=== PATIENT | male | born 1955 | race Caucasian/White ===

== ENCOUNTER 2022-08-02 10:49 | Outpatient (CLI) | payer BC, SELFPAY ==
--- NOTE | 2022-08-02 12:15 | W.ANESCHARGE ---
Anesthesia Charges Start Date/Time Anesthesia Start Date: 08/02/22 Anesthesia Start Time: 11:45 Stop Date/Time Anesthesia Stop Date: 08/02/22 Anesthesia Stop Time: 12:05 Summary Emergency: No
== END 2022-08-02 10:50 | disposition home or self-care (01) ==
LOC: OP CLINIC 10:51
PROVIDERS: PCP Internal Medicine; Visit Provider Internal Medicine
DX: Z12.11 Encounter for screening for malignant neoplasm of colon (principal); K63.5 Polyp of colon; K57.30 Diverticulosis of large intestine without perforation or abscess without bleeding; Z80.0 Family history of malignant neoplasm of digestive organs
CPT/HCPCS: 00811; 45380; 88305; J2704

== ENCOUNTER 2023-03-11 07:33 | Outpatient (CLI) | payer BC, SELFPAY ==
--- NOTE | 2023-03-11 08:00 | CRLHL7_ITS ---
For Patients: As a result of the Century Cures Act, medical imaging exams and procedure reports are released immediately into your electronic medical record. You may view this report before your referring provider. If you have questions, please contact your health care provider. INDICATION: RIGHT SIDED NECK MASS INTO 2 WEEKS COMPARISON: none TECHNIQUE: A CT volumetric acquisition was performed of the neck during intravenous infusion of 139 cc Isovue 370 nonionic intravenous contrast. Please note that all CT scans at this facility use dose modulation, iterative reconstruction, and/or weight-based dosing when appropriate to reduce radiation dose to as low as reasonably achievable. FINDINGS: The CT images demonstrate normal aeration of the mastoid air cells and middle ear cavities. Mild mucosal thickening within the inferior left maxillary sinus. The nasopharynx appears normal. The parotid and submandibular glands are of normal size and have uniform enhancement. There is a subtle ill-defined area of decreased density within the right posterior tongue base measuring 1.5 cm. An enlarged right cervical lymph node is present measuring 3.2 x 2.1 x 2.9 cm corresponding to the area of palpable concern, level II. Mild obscuration of the right piriform sinus noted. Coarse calcification adjacent to the right vallecula. Thyroid normal. Lung apices clear. Degenerative disc disease with disc space narrowing at C5-6. Discogenic spurring C6-7. IMPRESSION: Enlarged right cervical level 2 lymph node measuring 3.2 cm. A suspicious right posterior tongue base lesion is suspected as well. ENT referral recommended. Please note that all CT scans at this facility use dose modulation, iterative reconstruction, and/or weight-based dosing when appropriate to reduce radiation dose to as low as reasonably achievable. Dictated by Harley Sebastian MD @ 03/11/2023 11:44:28 AM (Electronically Signed)
[2023-03-11 08:13] LABS: Creatinine* 0.9 mg/dL (0.5-1.5); Estimated Glomerular Filt Rate 95 ml/min
== END 2023-03-11 07:34 | disposition home or self-care (01) ==
PROVIDERS: PCP Internal Medicine; Visit Provider Internal Medicine
DX: R22.1 Localized swelling, mass and lump, neck (principal)
CPT/HCPCS: 36415; 70491; 82565; 84443; Q9967

== ENCOUNTER 2023-04-29 13:31 | Outpatient (CLI) | payer BC, SELFPAY ==
--- NOTE | 2023-04-29 | CRLHL7_ITS ---
For Patients: As a result of the Century Cures Act, medical imaging exams and procedure reports are released immediately into your electronic medical record. You may view this report before your referring provider. If you have questions, please contact your health care provider. INDICATION: PICC line placement. TECHNIQUE: Chest radiographs, 1 view. COMPARISON: None. FINDINGS: Lines/Tubes/Devices: Left-sided peripherally inserted central venous catheter with tip terminating in the SVC, satisfactory position. Mediastinum: Normal cardiac silhouette. Lungs: No focal consolidation. Pleura: No pleural effusions or pneumothorax. Bones: No acute osseous abnormalities. Soft tissues: Unremarkable. IMPRESSION: Satisfactory position of a left-sided PICC line. No pneumothorax. Dictated by Mick Robert MD @ 04/29/2023 3:30:45 PM (Electronically Signed)
--- NOTE | 2023-04-29 14:00 | CRLHL7_ITS ---
For Patients: As a result of the Century Cures Act, medical imaging exams and procedure reports are released immediately into your electronic medical record. You may view this report before your referring provider. If you have questions, please contact your health care provider. Indication: PICC placement Technique: Grayscale images of the left basilic vein and left jugular vein. IMPRESSION: Sonographic guidance for left arm PICC line placement. Dictated by Harley Sebastian MD @ 04/30/2023 8:53:00 AM (Electronically Signed)
== END 2023-04-29 13:32 | disposition home or self-care (01) ==
LOC: US 13:32
PROVIDERS: PCP Internal Medicine; Visit Provider Clinical Nurse Specialist
DX: Z45.2 Encounter for adjustment and management of vascular access device (principal)
CPT/HCPCS: 36573

== ENCOUNTER 2023-05-07 09:17 | Outpatient (CLI) | payer BC, SELFPAY ==
--- NOTE | 2023-05-07 09:15 | CRLHL7_ITS ---
For Patients: As a result of the Century Cures Act, medical imaging exams and procedure reports are released immediately into your electronic medical record. You may view this report before your referring provider. If you have questions, please contact your health care provider. INDICATION: Malignant neoplasm of tongue base TECHNIQUE: Modified barium swallow. Fluoroscopic time 62 seconds. COMPARISON: None FINDINGS/IMPRESSION: The epiglottis retroverted normally but it appears somewhat delayed in anteversion. However, no aspiration or penetration. No obstruction. Normal upper esophagus. Dictated by Harley Sebastian MD @ 05/07/2023 9:52:53 AM (Electronically Signed)
== END 2023-05-07 09:18 | disposition home or self-care (01) ==
LOC: RAD 09:18
PROVIDERS: PCP Internal Medicine; Visit Provider Physician Assistant
DX: C01 Malignant neoplasm of base of tongue (principal)
CPT/HCPCS: 74230; 92611

== ENCOUNTER 2023-08-27 15:00 | Outpatient (RCR) | payer BC, SELFPAY ==
[2023-04-16 09:05] LABS: Creatinine* 0.8 mg/dL (0.5-1.5); Est. Creatinine Clearance* 85.63; Estimated Glomerular Filt Rate 98 ml/min
--- NOTE | 2023-04-18 11:56 | URNOTE ---
Request received for authorization for Cisplatin ([id number]). Prior authorization is not required per [facility] Ref#[id number] from 04/22/23 to 04/22/24.
[2023-04-21 12:10] LABS: Basophils Absolute Auto 0.04 K/uL (0.00-0.30); Basophils Percent Auto 0.6 % (0.0-3.0); Eosinophils Absolute Auto 0.11 K/uL (0.00-0.50); Eosinophils Percent Auto 1.5 % (0.0-7.0); Hemoglobin* 16.1 gm/dL (13.5-17.5); Immature Granulocytes Abs Auto 0.01 K/uL (0.00-0.30); Immature Granulocytes Pct Auto 0.1 %; Lymphocytes Absolute Auto 2.61 K/uL (0.90-2.90); Lymphocytes Percent Auto 36.1 % (20-44); Mean Corpuscular HGB Conc 35 gm/dL (32-36); Mean Corpuscular Hemoglobin 32 pg (26-34); Mean Corpuscular Volume 92 fL (80-100); Monocytes Percent Auto 6.8 % (0.0-11.0); Neutrophils Absolute Auto 3.96 K/uL (1.7-7.0); Neutrophils Percent Auto 54.9 % (42.0-72.0); Platelet Count* 230 K/uL (140-440); Red Blood Count 4.99 m/uL (4.30-5.90); White Blood Count* 7.22 K/uL (4.50-11.00)
[2023-04-21 12:19] LABS: Slide Review Reflex No
[2023-04-21 12:35] LABS: Albumin* 4.4 g/dL (3.3-5.0); Chloride* 106 mmol/L (96-114); Sodium* 141 mmol/L (135-149)
[2023-04-21 12:36] LABS: Potassium* 4.4 mmol/L (3.6-5.1)
[2023-04-21 12:37] LABS: Creatinine* 0.9 mg/dL (0.5-1.5); Est. Creatinine Clearance* 80.83; Estimated Glomerular Filt Rate 95 ml/min
[2023-04-21 12:38] LABS: Alkaline Phosphatase* 57 U/L (40-150); Anion Gap 7 mEq/L (7-15); Aspartate Amino Transferase* 35 U/L (12-35); Bilirubin Total* 0.7 mg/dL (0.1-1.5); Blood Urea Nitrogen* 12 mg/dL (7-30); Carbon Dioxide* 28 mmol/L (20-32); Total Protein* 7.7 g/dL (6.0-8.3)
[2023-04-21 12:39] LABS: Alanine Aminotransferase* 36 U/L (4-50); Calcium* 9.8 mg/dL (8.4-10.6); Glucose* 135 mg/dL (60-115)
[2023-04-23 10:56] VITALS: BP 163/79; PULSE 54; RESP 16; TEMP 36.4; O2SAT 98
[2023-04-23] MEDS: MAGNESIUM SULFATE 2 GM, POTASSIUM CHLORIDE 10 MEQ in 0.9 % SODIUM CHLORIDE 1000 ml 1,00... IV (11:21)
[2023-04-23] MEDS: PALONOSETRON 0.25 MG/5 ML inj IV (12:30)
[2023-04-23] MEDS: dexAMETHasone 10 MG in 0.9 % SODIUM CHLORIDE 100 ml 100 ML 404 MG IVPB (12:30)
[2023-04-23] MEDS: FOSAPREPITANT 150 MG inj 150 MG in 0.9 % SODIUM CHLORIDE 250 ml 250 ML 510 MG IVPB (12:51)
[2023-04-23] MEDS: CISPLATIN IV (13:25)
[2023-04-23] MEDS: TUBING SECONDARY IV (13:25)
[2023-04-23] MEDS: SODIUM CHLORIDE 0.9% IV (13:25)
--- NOTE | 2023-04-24 11:09 | ONC.NURNOTE ---
Post chemo follow up call: Reports no nausea has taken 2 X 5mg compazine this am 30 min prior to breakfost- will continue with this schedule every 4-6 hours today drinking water- 1.5-2 qts so far today reports SAWYER since he woke up this am- this is a possible side effect of the 5HT3 antiemetics- suggested tylenol to treat also suggested taking one ondansetron at a time instead of 2 until SAWYER resolves mid night awakening- otherwise slept well last night Cole would like to have a PICC line placed instead of a port he would like to check on availability next Sunday 04/29 prior to 3:30 XRT appt informed of Central Office Technician to check in at next infusion appt
--- NOTE | 2023-04-25 12:06 | URNOTE ---
REceived request for prior auth for Emend ([id number]) and Aloxi ([id number]). Per [employer], prior auth is not required. Ref #[id number]
[2023-04-29 13:15] VITALS: BP 140/80; PULSE 70; RESP 14; TEMP 36.1; O2SAT 97
[2023-04-29 15:12] LABS: Basophils Absolute Auto 0.03 K/uL (0.00-0.30); Basophils Percent Auto 0.5 % (0.0-3.0); Eosinophils Absolute Auto 0.11 K/uL (0.00-0.50); Eosinophils Percent Auto 1.8 % (0.0-7.0); Hematocrit 41.9 % (37.0-53.0); Hemoglobin* 14.8 gm/dL (13.5-17.5); Lymphocytes Absolute Auto 1.42 K/uL (0.90-2.90); Lymphocytes Percent Auto 22.6 % (20-44); Mean Corpuscular HGB Conc 35 gm/dL (32-36); Mean Corpuscular Hemoglobin 32 pg (26-34); Mean Corpuscular Volume 90 fL (80-100); Monocytes Percent Auto 9.6 % (0.0-11.0); Neutrophils Absolute Auto 4.12 K/uL (1.7-7.0); Neutrophils Percent Auto 65.5 % (42.0-72.0); Platelet Count* 240 K/uL (140-440); RDW Coefficient of Variation % 11.7 % (11.5-15.5); Red Blood Count 4.65 m/uL (4.30-5.90); White Blood Count* 6.28 K/uL (4.50-11.00)
[2023-04-29 15:17] LABS: Slide Review Reflex No
[2023-04-29 15:30] LABS: Albumin* 3.9 g/dL (3.3-5.0); Chloride* 100 mmol/L (96-114)
[2023-04-29 15:31] LABS: Sodium* 133 mmol/L (135-149)
[2023-04-29 15:33] LABS: Alanine Aminotransferase* 35 U/L (4-50); Alkaline Phosphatase* 53 U/L (40-150); Anion Gap 7 mEq/L (7-15); Aspartate Amino Transferase* 29 U/L (12-35); Bilirubin Total* 0.6 mg/dL (0.1-1.5); Blood Urea Nitrogen* 13 mg/dL (7-30); Carbon Dioxide* 26 mmol/L (20-32); Creatinine* 0.9 mg/dL (0.5-1.5); Est. Creatinine Clearance* 80.83; Estimated Glomerular Filt Rate 95 ml/min; Glucose* 119 mg/dL (60-115); Total Protein* 6.9 g/dL (6.0-8.3)
[2023-04-29 15:34] LABS: Calcium* 9.3 mg/dL (8.4-10.6)
[2023-04-30 10:59] VITALS: BP 136/91; PULSE 60; RESP 16; TEMP 36.7; O2SAT 99
[2023-04-30] MEDS: MAGNESIUM SULFATE 2 GM, POTASSIUM CHLORIDE 10 MEQ in 0.9 % SODIUM CHLORIDE 1000 ml 1,00... IV (11:49)
[2023-04-30] MEDS: dexAMETHasone 10 MG in 0.9 % SODIUM CHLORIDE 100 ml 100 ML 404 MG IVPB (12:57)
[2023-04-30] MEDS: PALONOSETRON 0.25 MG/5 ML inj IV (12:57)
[2023-04-30] MEDS: FOSAPREPITANT 150 MG inj 150 MG in 0.9 % SODIUM CHLORIDE 250 ml 250 ML 800 MG IVPB (13:16)
[2023-04-30] MEDS: SODIUM CHLORIDE 0.9% IV (13:46)
[2023-04-30] MEDS: CISPLATIN IV (13:46)
[2023-04-30] MEDS: TUBING SECONDARY IV (13:46)
[2023-05-06 14:35] LABS: Basophils Absolute Auto 0.02 K/uL (0.00-0.30); Basophils Percent Auto 0.3 % (0.0-3.0); Eosinophils Absolute Auto 0.07 K/uL (0.00-0.50); Eosinophils Percent Auto 1.2 % (0.0-7.0); Hematocrit 41.6 % (37.0-53.0); Hemoglobin* 14.8 gm/dL (13.5-17.5); Immature Granulocytes Abs Auto 0.01 K/uL (0.00-0.30); Immature Granulocytes Pct Auto 0.2 %; Lymphocytes Percent Auto 15.5 % (20-44); Mean Corpuscular HGB Conc 36 gm/dL (32-36); Mean Corpuscular Hemoglobin 32 pg (26-34); Mean Corpuscular Volume 90 fL (80-100); Monocytes Percent Auto 7.4 % (0.0-11.0); Neutrophils Percent Auto 75.4 % (42.0-72.0); Platelet Count* 203 K/uL (140-440); RDW Coefficient of Variation % 11.7 % (11.5-15.5); Red Blood Count 4.62 m/uL (4.30-5.90); White Blood Count* 5.94 K/uL (4.50-11.00)
[2023-05-06 14:53] LABS: Albumin* 3.9 g/dL (3.3-5.0); Chloride* 102 mmol/L (96-114)
[2023-05-06 14:54] LABS: Potassium* 4.1 mmol/L (3.6-5.1); Sodium* 134 mmol/L (135-149)
[2023-05-06 14:56] LABS: Anion Gap 8 mEq/L (7-15); Aspartate Amino Transferase* 27 U/L (12-35); Bilirubin Total* 0.7 mg/dL (0.1-1.5); Blood Urea Nitrogen* 14 mg/dL (7-30); Carbon Dioxide* 24 mmol/L (20-32); Creatinine* 0.7 mg/dL (0.5-1.5); Est. Creatinine Clearance* 80.83; Estimated Glomerular Filt Rate 102 ml/min; Slide Review Reflex No; Total Protein* 7.1 g/dL (6.0-8.3)
[2023-05-06 14:57] LABS: Alanine Aminotransferase* 33 U/L (4-50); Alkaline Phosphatase* 61 U/L (40-150); Calcium* 9.1 mg/dL (8.4-10.6); Glucose* 193 mg/dL (60-115); Magnesium* 1.9 mg/dL (1.5-2.6)
[2023-05-07 10:41] VITALS: BP 130/86; PULSE 66; RESP 16; TEMP 36.7; O2SAT 94
[2023-05-07] MEDS: MAGNESIUM SULFATE 2 GM, POTASSIUM CHLORIDE 10 MEQ in 0.9 % SODIUM CHLORIDE 1000 ml 1,00... IV (11:36)
[2023-05-07] MEDS: PALONOSETRON 0.25 MG/5 ML inj IV (12:53)
[2023-05-07] MEDS: dexAMETHasone 10 MG in 0.9 % SODIUM CHLORIDE 100 ml 100 ML 404 MG IVPB (12:54)
[2023-05-07] MEDS: FOSAPREPITANT 150 MG inj 150 MG in 0.9 % SODIUM CHLORIDE 250 ml 250 ML 510 MG IVPB (13:13)
[2023-05-07] MEDS: TUBING SECONDARY IV (13:49)
[2023-05-07] MEDS: SODIUM CHLORIDE 0.9% IV (13:49)
[2023-05-07] MEDS: CISPLATIN IV (13:49)
[2023-05-13 15:30] LABS: Basophils Absolute Auto 0.02 K/uL (0.00-0.30); Basophils Percent Auto 0.4 % (0.0-3.0); Eosinophils Absolute Auto 0.06 K/uL (0.00-0.50); Eosinophils Percent Auto 1.3 % (0.0-7.0); Hematocrit 39.7 % (37.0-53.0); Hemoglobin* 14.3 gm/dL (13.5-17.5); Mean Corpuscular HGB Conc 36 gm/dL (32-36); Mean Corpuscular Hemoglobin 32 pg (26-34); Mean Corpuscular Volume 89 fL (80-100); Monocytes Percent Auto 9.8 % (0.0-11.0); Neutrophils Absolute Auto 3.18 K/uL (1.7-7.0); Neutrophils Percent Auto 69.5 % (42.0-72.0); Platelet Count* 184 K/uL (140-440); RDW Coefficient of Variation % 11.5 % (11.5-15.5); Red Blood Count 4.47 m/uL (4.30-5.90); White Blood Count* 4.58 K/uL (4.50-11.00)
[2023-05-13 15:40] LABS: Slide Review Reflex No
[2023-05-13 15:46] LABS: Albumin* 4.1 g/dL (3.3-5.0); Chloride* 101 mmol/L (96-114); Sodium* 133 mmol/L (135-149)
[2023-05-13 15:47] LABS: Potassium* 3.9 mmol/L (3.6-5.1)
[2023-05-13 15:49] LABS: Alanine Aminotransferase* 29 U/L (4-50); Alkaline Phosphatase* 55 U/L (40-150); Anion Gap 10 mEq/L (7-15); Aspartate Amino Transferase* 27 U/L (12-35); Bilirubin Total* 0.5 mg/dL (0.1-1.5); Blood Urea Nitrogen* 13 mg/dL (7-30); Carbon Dioxide* 22 mmol/L (20-32); Creatinine* 0.8 mg/dL (0.5-1.5); Est. Creatinine Clearance* 80.83; Estimated Glomerular Filt Rate 98 ml/min; Glucose* 162 mg/dL (60-115); Total Protein* 7.1 g/dL (6.0-8.3)
[2023-05-13 15:50] LABS: Calcium* 9.1 mg/dL (8.4-10.6); Magnesium* 1.8 mg/dL (1.5-2.6)
[2023-05-14] MEDS: MAGNESIUM SULFATE 2 GM, POTASSIUM CHLORIDE 10 MEQ in 0.9 % SODIUM CHLORIDE 1000 ml 1,00... IV (09:14)
[2023-05-14] MEDS: PALONOSETRON 0.25 MG/5 ML inj IV (10:22)
[2023-05-14] MEDS: dexAMETHasone 10 MG in 0.9 % SODIUM CHLORIDE 100 ml 100 ML 404 MG IVPB (10:22)
[2023-05-14] MEDS: FOSAPREPITANT 150 MG inj 150 MG in 0.9 % SODIUM CHLORIDE 250 ml 250 ML 510 MG IVPB (10:44)
[2023-05-14] MEDS: SODIUM CHLORIDE 0.9% IV (11:24)
[2023-05-14] MEDS: CISPLATIN IV (11:24)
[2023-05-14] MEDS: TUBING SECONDARY IV (11:24)
[2023-05-14] MEDS: SODIUM CHLORIDE 0.9 % (FLUSH) 10 ML SYRINGE IVF (13:47)
[2023-05-20 15:03] LABS: Basophils Percent Auto 0.2 % (0.0-3.0); Eosinophils Percent Auto 1.2 % (0.0-7.0); Hematocrit 36.9 % (37.0-53.0); Hemoglobin* 13.1 gm/dL (13.5-17.5); Lymphocytes Percent Auto 13.2 % (20-44); Mean Corpuscular HGB Conc 36 gm/dL (32-36); Mean Corpuscular Hemoglobin 32 pg (26-34); Mean Corpuscular Volume 91 fL (80-100); Monocytes Percent Auto 10.9 % (0.0-11.0); Neutrophils Percent Auto 74.5 % (42.0-72.0); Platelet Count* 133 K/uL (140-440); RDW Coefficient of Variation % 11.7 % (11.5-15.5); Red Blood Count 4.06 m/uL (4.30-5.90); White Blood Count* 4.02 K/uL (4.50-11.00)
[2023-05-20 15:05] LABS: Slide Review Reflex No
[2023-05-20 15:29] LABS: Albumin* 4.2 g/dL (3.3-5.0); Chloride* 102 mmol/L (96-114)
[2023-05-20 15:30] LABS: Potassium* 3.9 mmol/L (3.6-5.1); Sodium* 134 mmol/L (135-149)
[2023-05-20 15:32] LABS: Alkaline Phosphatase* 57 U/L (40-150); Anion Gap 10 mEq/L (7-15); Aspartate Amino Transferase* 24 U/L (12-35); Bilirubin Total* 0.6 mg/dL (0.1-1.5); Carbon Dioxide* 22 mmol/L (20-32); Creatinine* 0.7 mg/dL (0.5-1.5); Est. Creatinine Clearance* 80.83; Estimated Glomerular Filt Rate 102 ml/min
[2023-05-20 15:33] LABS: Alanine Aminotransferase* 26 U/L (4-50); Blood Urea Nitrogen* 15 mg/dL (7-30); Calcium* 9.1 mg/dL (8.4-10.6); Glucose* 170 mg/dL (60-115); Magnesium* 1.9 mg/dL (1.5-2.6)
[2023-05-21 10:54] VITALS: BP 110/77; PULSE 65; RESP 16; TEMP 36.9; O2SAT 96
[2023-05-21] MEDS: SODIUM CHLORIDE 0.9 % (FLUSH) 10 ML SYRINGE IVF (11:33)
[2023-05-21] MEDS: MAGNESIUM SULFATE 2 GM, POTASSIUM CHLORIDE 10 MEQ in 0.9 % SODIUM CHLORIDE 1000 ml 1,00... IV (11:33)
[2023-05-21] MEDS: dexAMETHasone 10 MG in 0.9 % SODIUM CHLORIDE 100 ml 100 ML 404 MG IVPB (12:46)
[2023-05-21] MEDS: PALONOSETRON 0.25 MG/5 ML inj IV (12:46)
[2023-05-21] MEDS: FOSAPREPITANT 150 MG inj 150 MG in 0.9 % SODIUM CHLORIDE 250 ml 250 ML 510 MG IVPB (13:02)
[2023-05-21] MEDS: CISPLATIN IV (13:35)
[2023-05-21] MEDS: TUBING SECONDARY IV (13:35)
[2023-05-21] MEDS: SODIUM CHLORIDE 0.9% IV (13:35)
[2023-05-23] MEDS: 0.9 % SODIUM CHLORIDE 1000 ml 1,000 ML IV (11:15)
[2023-05-23] MEDS: SODIUM CHLORIDE 0.9 % (FLUSH) 10 ML SYRINGE IVF (13:30)
[2023-05-27] MEDS: SODIUM CHLORIDE 0.9 % (FLUSH) 10 ML SYRINGE IVF (15:08)
[2023-05-27 15:09] LABS: Basophils Percent Auto 0.3 % (0.0-3.0); Eosinophils Percent Auto 0.9 % (0.0-7.0); Hematocrit 33.4 % (37.0-53.0); Hemoglobin* 11.9 gm/dL (13.5-17.5); Immature Granulocytes Pct Auto 0.9 %; Lymphocytes Percent Auto 12.9 % (20-44); Mean Corpuscular HGB Conc 36 gm/dL (32-36); Mean Corpuscular Hemoglobin 32 pg (26-34); Mean Corpuscular Volume 90 fL (80-100); Monocytes Percent Auto 10.7 % (0.0-11.0); Neutrophils Percent Auto 74.3 % (42.0-72.0); Platelet Count* 119 K/uL (140-440); RDW Coefficient of Variation % 12.3 % (11.5-15.5); White Blood Count* 3.18 K/uL (4.50-11.00)
[2023-05-27 15:12] VITALS: TEMP 36.1
[2023-05-27 15:15] LABS: Slide Review Reflex No
[2023-05-27 15:24] LABS: Albumin* 4.1 g/dL (3.3-5.0)
[2023-05-27 15:25] LABS: Chloride* 102 mmol/L (96-114); Potassium* 3.9 mmol/L (3.6-5.1); Sodium* 136 mmol/L (135-149)
[2023-05-27 15:27] LABS: Anion Gap 10 mEq/L (7-15); Aspartate Amino Transferase* 26 U/L (12-35); Bilirubin Total* 0.5 mg/dL (0.1-1.5); Blood Urea Nitrogen* 21 mg/dL (7-30); Carbon Dioxide* 24 mmol/L (20-32); Creatinine* 0.9 mg/dL (0.5-1.5); Est. Creatinine Clearance* 80.83; Estimated Glomerular Filt Rate 95 ml/min
[2023-05-27 15:28] LABS: Alanine Aminotransferase* 24 U/L (4-50); Alkaline Phosphatase* 61 U/L (40-150); Calcium* 8.8 mg/dL (8.4-10.6); Glucose* 143 mg/dL (60-115); Magnesium* 1.7 mg/dL (1.5-2.6)
[2023-05-28 10:42] VITALS: BP 122/73; PULSE 70; RESP 16; TEMP 35.9; O2SAT 100
[2023-05-28] MEDS: MAGNESIUM SULFATE 2 GM, POTASSIUM CHLORIDE 10 MEQ in 0.9 % SODIUM CHLORIDE 1000 ml 1,00... IV (11:33)
[2023-05-28] MEDS: dexAMETHasone 10 MG in 0.9 % SODIUM CHLORIDE 100 ml 100 ML 404 MG IVPB (12:52)
[2023-05-28] MEDS: PALONOSETRON 0.25 MG/5 ML inj IV (12:52)
[2023-05-28] MEDS: FOSAPREPITANT 150 MG inj 150 MG in 0.9 % SODIUM CHLORIDE 250 ml 250 ML 510 MG IVPB (13:19)
[2023-05-28] MEDS: TUBING SECONDARY IV (13:52)
[2023-05-28] MEDS: SODIUM CHLORIDE 0.9% IV (13:52)
[2023-05-28] MEDS: CISPLATIN IV (13:52)
[2023-05-28] MEDS: SODIUM CHLORIDE 0.9 % (FLUSH) 10 ML SYRINGE IVF (15:58)
[2023-05-30 14:09] VITALS: BP 128/77; PULSE 73; RESP 16; TEMP 36.6; O2SAT 98
[2023-05-30] MEDS: SODIUM CHLORIDE 0.9 % (FLUSH) 10 ML SYRINGE IVF (14:17)
[2023-05-30] MEDS: 0.9 % SODIUM CHLORIDE 1000 ml 1,000 ML IV (14:17)
[2023-05-30 14:22] VITALS: BP 116/74; BP 128/78; PULSE 85; TEMP 36.8
[2023-06-02 14:00] VITALS: BP 108/74; PULSE 72; RESP 14; TEMP 36.1; O2SAT 100
[2023-06-03 15:01] LABS: Eosinophils Percent Auto 1.6 % (0.0-7.0); Hematocrit 27.5 % (37.0-53.0); Lymphocytes Percent Auto 14.1 % (20-44); Mean Corpuscular HGB Conc 36 gm/dL (32-36); Mean Corpuscular Hemoglobin 33 pg (26-34); Mean Corpuscular Volume 90 fL (80-100); Monocytes Percent Auto 16.4 % (0.0-11.0); Neutrophils Percent Auto 67.9 % (42.0-72.0); Platelet Count* 127 K/uL (140-440); Red Blood Count 3.05 m/uL (4.30-5.90)
[2023-06-03 15:04] LABS: Slide Review Reflex No; White Blood Count* 1.28 K/uL (4.50-11.00)
[2023-06-03 15:16] LABS: Albumin* 3.7 g/dL (3.3-5.0); Chloride* 102 mmol/L (96-114); Potassium* 3.6 mmol/L (3.6-5.1); Sodium* 134 mmol/L (135-149)
[2023-06-03 15:18] LABS: Anion Gap 7 mEq/L (7-15); Aspartate Amino Transferase* 35 U/L (12-35); Bilirubin Total* 0.6 mg/dL (0.1-1.5); Carbon Dioxide* 25 mmol/L (20-32); Creatinine* 0.8 mg/dL (0.5-1.5); Est. Creatinine Clearance* 80.83; Estimated Glomerular Filt Rate 98 ml/min
[2023-06-03 15:19] LABS: Alanine Aminotransferase* 18 U/L (4-50); Alkaline Phosphatase* 54 U/L (40-150); Blood Urea Nitrogen* 19 mg/dL (7-30); Calcium* 8.3 mg/dL (8.4-10.6); Glucose* 142 mg/dL (60-115); Magnesium* 1.5 mg/dL (1.5-2.6); Total Protein* 6.6 g/dL (6.0-8.3)
[2023-06-04] MEDS: 0.9 % SODIUM CHLORIDE 1000 ml 1,000 ML IV (11:55)
[2023-06-13 14:00] VITALS: BP 128/83; BP 97/69; PULSE 103; RESP 17; TEMP 36.1; O2SAT 98
[2023-06-16 14:06] VITALS: BP 133/81; PULSE 66; RESP 17; TEMP 36.6; O2SAT 97
[2023-06-16] MEDS: 0.9 % SODIUM CHLORIDE 1000 ml 1,000 ML IV (14:40)
[2023-06-16] MEDS: SODIUM CHLORIDE 0.9 % (FLUSH) 10 ML SYRINGE IVF (15:04)
[2023-06-18 13:54] VITALS: BP 151/87; PULSE 60; RESP 17; TEMP 36.5; O2SAT 98
[2023-06-18] MEDS: 0.9 % SODIUM CHLORIDE 1000 ml 1,000 ML IV (14:18)
[2023-06-20 13:51] VITALS: BP 148/86; PULSE 70; RESP 18; TEMP 35.7; O2SAT 99
[2023-06-20] MEDS: 0.9 % SODIUM CHLORIDE 1000 ml 1,000 ML IV (14:00)
[2023-06-23 10:59] VITALS: BP 147/85; PULSE 65; RESP 18; TEMP 36.6; O2SAT 98
[2023-06-23] MEDS: 0.9 % SODIUM CHLORIDE 1000 ml 1,000 ML IV (11:30)
[2023-06-23] MEDS: SODIUM CHLORIDE 0.9 % (FLUSH) 10 ML SYRINGE IVF (12:22)
[2023-06-27 14:09] VITALS: BP 138/82; PULSE 62; RESP 16; TEMP 35.8; O2SAT 98
[2023-06-27] MEDS: SODIUM CHLORIDE 0.9 % (FLUSH) 10 ML SYRINGE IVF (14:15)
[2023-06-27] MEDS: 0.9 % SODIUM CHLORIDE 1000 ml 1,000 ML IV (14:20)
[2023-06-27 14:36] LABS: Hematocrit 34.4 % (37.0-53.0); Hemoglobin* 11.6 gm/dL (13.5-17.5); Lymphocytes Percent Auto 9.8 % (20-44); Mean Corpuscular HGB Conc 34 gm/dL (32-36); Mean Corpuscular Hemoglobin 33 pg (26-34); Mean Corpuscular Volume 99 fL (80-100); Monocytes Percent Auto 12.8 % (0.0-11.0); Neutrophils Percent Auto 76.1 % (42.0-72.0); Platelet Count* 233 K/uL (140-440); RDW Coefficient of Variation % 18.4 % (11.5-15.5); Red Blood Count 3.47 m/uL (4.30-5.90); White Blood Count* 4.69 K/uL (4.50-11.00)
[2023-06-27 14:37] LABS: Basophils Absolute Auto 0.01 K/uL (0.00-0.30); Basophils Percent Auto 0.2 % (0.0-3.0); Eosinophils Absolute Auto 0.04 K/uL (0.00-0.50); Eosinophils Percent Auto 0.9 % (0.0-7.0); Immature Granulocytes Abs Auto 0.01 K/uL (0.00-0.30); Immature Granulocytes Pct Auto 0.2 %
[2023-06-27 14:39] LABS: Sodium* 138 mmol/L (135-149)
[2023-06-27 14:40] LABS: Potassium* 3.5 mmol/L (3.6-5.1)
[2023-06-27 14:45] LABS: Slide Review Reflex No
[2023-06-27 14:59] LABS: Albumin* 3.8 g/dL (3.3-5.0)
[2023-06-27 15:00] LABS: Chloride* 104 mmol/L (96-114)
[2023-06-27 15:02] LABS: Anion Gap 11 mEq/L (7-15); Aspartate Amino Transferase* 26 U/L (12-35); Bilirubin Total* 0.7 mg/dL (0.1-1.5); Carbon Dioxide* 23 mmol/L (20-32); Creatinine* 0.7 mg/dL (0.5-1.5); Est. Creatinine Clearance* 80.83; Estimated Glomerular Filt Rate 102 ml/min; Total Protein* 6.8 g/dL (6.0-8.3)
[2023-06-27 15:03] LABS: Alanine Aminotransferase* 19 U/L (4-50); Alkaline Phosphatase* 58 U/L (40-150); Blood Urea Nitrogen* 12 mg/dL (7-30); Calcium* 9.3 mg/dL (8.4-10.6); Glucose* 127 mg/dL (60-115)
== END 2023-10-13 23:59 | disposition home or self-care (01) ==
LOC: CCIC 15:00
PROVIDERS: Clinical Nurse Specialist; Internal Medicine; PCP Internal Medicine; Referring Provider Internal Medicine; Visit Provider Internal Medicine Hematology & Oncology
DX: C01 Malignant neoplasm of base of tongue (principal); R68.2 Dry mouth, unspecified; R22.1 Localized swelling, mass and lump, neck
CPT/HCPCS: 36415; 36569; 36589; 36592; 80053; 82565; 83735; 85025; 96360; 96366; 96376; 96413; 99202; 99205; 99211; 99212; 99213; 99214; 99215; G0463; A4221; J1100; J1453; J2469; J3475; J3480; J7030; J7050; J7120; J9060

== ENCOUNTER 2023-12-05 15:30 | Outpatient (RCR) | payer BC, SELFPAY ==
[2023-06-02] MEDS: 0.9 % SODIUM CHLORIDE 1000 ml 1,000 ML IV (14:00)
[2023-06-02] MEDS: SODIUM CHLORIDE 0.9 % (FLUSH) 10 ML SYRINGE IVF (17:02)
[2023-06-06 14:00] VITALS: BP 108/74; PULSE 72; RESP 18; TEMP 36.9; O2SAT 100
[2023-06-06 14:05] VITALS: BP 118/86; PULSE 86
[2023-06-06] MEDS: SODIUM CHLORIDE 0.9 % (FLUSH) 10 ML SYRINGE IVF (15:32)
[2023-06-09 14:08] VITALS: BP 143/84; PULSE 84; RESP 17; TEMP 36.8; O2SAT 98
[2023-06-09] MEDS: 0.9 % SODIUM CHLORIDE 1000 ml 1,000 ML IV (14:22)
[2023-06-09] MEDS: SODIUM CHLORIDE 0.9 % (FLUSH) 10 ML SYRINGE IVF (14:22)
[2023-06-11] MEDS: 0.9 % SODIUM CHLORIDE 1000 ml 1,000 ML IV (14:00)
[2023-06-11 14:04] VITALS: BP 132/83; PULSE 83; RESP 17; TEMP 36.8; O2SAT 98
[2023-06-11] MEDS: SODIUM CHLORIDE 0.9 % (FLUSH) 10 ML SYRINGE IVF (14:40)
[2023-06-13] MEDS: 0.9 % SODIUM CHLORIDE 1000 ml 1,000 ML IV (14:45)
[2023-06-13] MEDS: SODIUM CHLORIDE 0.9 % (FLUSH) 10 ML SYRINGE IVF (16:42)
== END 2023-12-05 17:02 | disposition home or self-care (01) ==
PROVIDERS: PCP Internal Medicine; Referring Provider Internal Medicine; Visit Provider Physician Assistant
DX: C01 Malignant neoplasm of base of tongue (principal); Z51.89 Encounter for other specified aftercare
CPT/HCPCS: 96360; 97110; 97140; 97161; 97165; 97530; 97535; 99211; A4221; J7030; X5282

== ENCOUNTER 2023-12-07 12:07 | Emergency (ER) | payer BC, SELFPAY ==
[2023-12-07 12:13] VITALS: BP 162/82; PULSE 60; RESP 18; TEMP 36.6; O2SAT 100; BMI 28.8
--- NOTE | 2023-12-07 12:16 | ED.LOWEXIN ---
HPI - Extremity Injury (Lower) General Time Seen by Provider: 12:16 Date Seen: 12/07/23 Chief Complaint: Extremity Pain/Injury, Lower Stated Complaint: Can't bear weight on L leg-dog knocked over Time Seen by Provider: 12/07/23 12:08 Source: patient and RN notes reviewed Mode of arrival: ambulatory Limitations: no limitations History of Present Illness HPI Narrative: Cole is a 68-year-old gentleman coming into the ER with complaint of left knee pain. He is here with assistance. He came independently in the ER but is complaining of left knee pain, the lower part of the knee and specifically more laterally below the knee. He was outside with his dog whom is 110 lb [place] puppy. The dog ran around the corner the house, he called the dog back in the dog came around the corner running full speed straight at him. He actually got knocked up in over the dog, came down on his left leg some how. He did not lose consciousness, denies any head or neck injury, no other injuries elsewhere. He states when he attempted to get back up, he could not put weight on the left knee, had pain where he felt it was outside in just below the left knee area. He points over the proximal fibula area. He is not noting any hip pain, no ankle pain, no foot pain. He denies any numbness tingling this extremity. As far as instability, really felt he could not bear weight, difficult to say if there is any sense of instability. There is just maybe a dull ache at rest lying on the bed, does not needing any pain meds at this point. If he attempts to try to stand on it or if he moves the leg the wrong way, has increase in pain. Related Data Home Medications Medication Instructions Recorded Confirmed calcium carbonate (Calcium 500) 500 mg PO QDAY 02/13/22 08/27/23 fiber 1 tab PO DAILY 02/13/22 08/27/23 glucosamine HCl 1,500 mg tablet 1,500 mg PO QDAY 02/13/22 08/27/23 multivitamin (Daily Multi-Vitamin 1 tab PO QDAY 02/13/22 08/27/23 tablet) acetaminophen 500 mg tablet 500 mg PO Q6H PRN 05/14/23 08/27/23 (Tylenol Extra Strength) ibuprofen 400 mg tablet 400 mg PO Q6H PRN 05/14/23 08/27/23 ascorbic acid (vitamin C) 500 mg 1 g PO Q6H 08/27/23 08/27/23 tablet lutein 25 mg-zeaxanthin 5 mg cap PO QDAY 08/27/23 08/27/23 capsule (Ocuvite Lutein) magnesium oxide 400 mg PO QDAY 08/27/23 08/27/23 Previous Rx's Medication Instructions Recorded epinephrine 0.3 mg/0.3 mL 0.3 mg (0.3 mL) IM ONCE #2 ea 05/21/23 injection, auto-injector (EpiPen 2-David) Allergies Allergy/AdvReac Type Severity Reaction Status Date / Time bee venom protein (honey bee) Allergy Severe Verified 08/27/23 15:07 Review of Systems Narrative: As per HPI. [facility] Medical History Neck mass ?R22.1 - Localized swelling, mass and lump, neck (ICD-10) Elevated blood sugar ?R73.9 - Hyperglycemia, unspecified (ICD-10) Hyperlipidemia (01/23/10) ?E78.5 - Hyperlipidemia, unspecified (ICD-10) Family History Other Colon cancer Social History Smoking Status: Never smoker How often do you have a drink containing alcohol: never AUDIT-C Alcohol total score: 0 Non-prescribed substance use: denies use Exam Const: Vital Signs, click to edit/add: Vital Signs - 24 hr 12/07/23 12:13 Temperature 97.8 F Pulse Rate [Right Pulse Oximeter] 60 Respiratory Rate 18 Blood Pressure [Ri ght Upper Arm] 162/82 H Pulse Oximetry 100 Oxygen Delivery Me thod Room Air Patient is alert, interactive, no apparent distress. No open wounds overlying this knee area. Definite palpable knee effusion when compared to his left knee. He does not complain of any pain when I palpate around the knee joint or into the popliteal fossa. Patella seems to be intact, nontender. No pain over the proximal fibula on palpation. I cannot reproduce his pain by palpation. There is no erythema or warmth. When I attempt just slight flexion of the knee, that aggravates his pain. Range of motion assessment was limited to that and stopped until we can image his knee. He has no pain in the hip area with gentle range of motion, femur palpates intact. Tibia and fibula seem to be nontender on palpation, no pain around his ankle, full range of motion about the ankle, no swelling of the ankle mortise. Documenting provider has reviewed patient's vital signs: yes Course Course ED Course: Obtain x-ray images up this left knee to rule out underlying fracture. Do wonder about tibial plateau fracture, proximal fibula fracture. His knee joint definitely has an effusion, internal derangements of the knee are also possible. Reevaluation(s) Time of Reevaluation #1: 12:39 Reevaluation #1: Reviewed with patient his tibial fracture, did show a picture. We will page Orthopedics, see if they do want CT imaging done today. Upon further review of his history, patient has had no cardiac or lung complications, is on no current medicines. 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 During his workup of that, they did find an abdominal mass that did not light up on PET scan. 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 He states they excised to completely, he does not need any chemotherapy. Consultations Consultation #1: Did speak with Regien SHEPHERD from Orthopedics. She is going to review this with the on-call orthopedist, see if they do want a CT done which we would do today. Otherwise crutches, knee immobilizer, clinic follow-up to schedule surgery. This is a surgical case. Regine did call right back, they do want CT imaging of the knee which is what I did expect. We will order CT of his left knee. Knee immobilizer, crutches at discharge. It is requested that he follow up with either Dr. Beck or Dr. Houser in clinic, this will be on Friday. 1:18 p.m.: Did call Regine back, I have reviewed the CT of his knee preliminarily. I do see medial extension, believe the fibular head to be involved as well. She is going to review the CT, talk to the orthopedist on-call to see if this is something they may want to refer out. 1:39 p.m.: Regine did review the CT with the orthopedist on-call. This will be a referral to [facility] as patient has gone to [facility]. Will send his imaging to [facility], can likely follow up outpatient. Time: 12:55 Consultation #2: Did speak with Mallika ARREGUIN from the transfer center at [facility]. She will await the images from the films to get there, talk to Orthopedics. They will contact me if there is any other concerns or changes, otherwise patient can expect to get follow-up at [facility]. Patient is updated on this development. Time: 13:47 Vital Signs Vital signs: Initial Vital Signs Temperature 97.8 F 12/07/23 12:13 Temperature Source Temporal Artery Scan 12/07/23 12:13 Pulse Rate 60 12/07/23 12:13 Respiratory Rate 18 12/07/23 12:13 Blood Pressure 162/82 H 12/07/23 12:13 Blood Pressure Mean 108 H 12/07/23 12:13 Blood Pressure Position Sitting 12/07/23 12:13 Pulse Oximetry 100 12/07/23 12:13 Oxygen Delivery Method Room Air 12/07/23 12:13 Vital Signs Temperature 97.8 F 12/07/23 12:13 Pulse Rate 60 12/07/23 12:13 Respiratory Rate 18 12/07/23 12:13 Blood Pressure 162/82 H 12/07/23 12:13 Pulse Oximetry 100 12/07/23 12:13 Oxygen Delivery Method Room Air 12/07/23 12:13 Temperature 97.8 F 12/07/23 12:13 Pulse Rate 60 12/07/23 12:13 Respiratory Rate 18 12/07/23 12:13 Blood Pressure 162/82 H 12/07/23 12:13 Pulse Oximetry 100 12/07/23 12:13 Oxygen Delivery Method Room Air 12/07/23 12:13 MDM - Extremity Injury (Lower) Imaging Data XR left knee: Attestation: I have reviewed the pertinent imaging results. My impression: I do see a lateral full avulsion of the tibia proximally through the plateau. There is displacement. Do wonder if there could be some extension into the medial component. Await Radiology over-read. Radiologist's impression: Patient: ERIC WATKINS Facility:?[facility] Patient ID:?[id number] Site Patient ID:?[id number] Site :?[id number] Study:?XRay-Knee Left 2V-12/07/2023 12:31:20 PM Ordering Physician:KERRY Final Report: INDICATION: Injury and pain. TECHNIQUE: Two views of the left knee. COMPARISON: None. FINDINGS: There is a fracture of the lateral tibial plateau with a 6 mm lateral displacement of the fracture fragment. There is a small knee joint effusion. Mild narrowing and small osteophytes at the patellofemoral joint. IMPRESSION: Acute lateral tibial plateau fracture with 6 mm lateral displacement the fracture fragment. Dictated by Es Olsen MD @ 12/07/2023 1:17:14 PM (Electronic Signature) Discharge Plan Discharge Clinical Impression: Closed fracture of tibial plateau Qualifiers: Encounter type: initial encounter Laterality: left Qualified Code(s): S82.142A - Displaced bicondylar fracture of left tibia, initial encounter for closed fracture Patient Disposition: Home, Self-Care Condition: Stable Instructions: Leg Fracture (ED) Additional Instructions: Use crutches and knee immobilizer for nonweightbearing on this leg. Ice, elevate this leg as much as possible. Tylenol and ibuprofen for pain management, follow bottle directions for dosing. Need to awiat the orthopedic office from [facility] to call you, hopefully this will happen Friday. They will need to treat and surgically repair this fracture, this is not something that is within our ability here. If you do not hear from [facility] by Friday, can call their general number at [phone] to try to talk to the orthopedic department. Activity Level: No Weight Bearing, Wear Brace and Use Crutches Prescriptions: No Action acetaminophen [Tylenol Extra Strength] 500 mg tablet 500 mg PO Q6H PRN ibuprofen 400 mg tablet 400 mg PO Q6H PRN ascorbic acid (vitamin C) 500 mg tablet 1 g PO Q6H lutein-zeaxanthin [Ocuvite Lutein 25] 25-5 mg capsule PO QDAY magnesium oxide 400 mg magnesium capsule 400 mg PO QDAY glucosamine HCl 1,500 mg tablet 1,500 mg PO QDAY Rx Instructions: administer with a meal fiber Tablet 1 tab PO DAILY calcium carbonate [Calcium 500] 500 mg calcium (1,250 mg) tablet,chewable 500 mg PO QDAY multivitamin [Daily Multi-Vitamin] Tablet 1 tab PO QDAY epinephrine [EpiPen 2-David] 0.3 mg/0.3 mL auto-injector 0.3 mg IM ONCE Qty: 2 0RF Rx Instructions: as a single dose; may repeat once Follow Up/Referrals: Arsalan Núñez MD [Primary Care Provider] - Stand Alone Forms: [employer] Info Instructions
--- NOTE | 2023-12-07 12:21 | XR_ITS ---
Patient: ERIC WATKINS Facility:?[facility] Patient ID:?[id number] Site Patient ID:?[id number] Site :?[id number] Study:?XRay-Knee Left 2V-12/07/2023 12:31:20 PM Ordering Physician:KERRY Final Report: INDICATION: Injury and pain. TECHNIQUE: Two views of the left knee. COMPARISON: None. FINDINGS: There is a fracture of the lateral tibial plateau with a 6 mm lateral displacement of the fracture fragment. There is a small knee joint effusion. Mild narrowing and small osteophytes at the patellofemoral joint. IMPRESSION: Acute lateral tibial plateau fracture with 6 mm lateral displacement the fracture fragment. Dictated by Es Olsen MD @ 12/07/2023 1:17:14 PM Signed by:?Es Olsen MD @12/07/2023 1:17:14 PM (Electronic Signature)
--- NOTE | 2023-12-07 12:58 | CT_ITS ---
Patient: ERIC WATKINS Facility:?[facility] Patient ID:?[id number] Site Patient ID:?[id number] Site :?[id number] Study:?CT-Extremity Left knee w/o-12/07/2023 1:10:58 PM Ordering Physician:Maryellen Levy Final Report: INDICATION: Tibial fracture. TECHNIQUE: Noncontrast CT of the left knee. COMPARISON: Radiographs from 12/07/2023. FINDINGS: Acute comminuted fracture of the lateral proximal tibia with vertical propagation from the plateau into the metaphysis. Fracture extends to the lateral cortex of the metaphysis. Disruption of the lateral tibial plateau articular surface is present with up to approximately 16 millimeters of step-off and depression as noted on coronal image number 38 of series 4. The medial tibial plateau is intact. There is no acute distal femoral fracture. Small fracture of the fibular head demonstrates 2 millimeters of displacement. It demonstrates a vertical orientation. No patellar fracture. Knee joint lipohemarthrosis is present related to the proximal tibial fracture. Popliteal cyst. Mild degenerative changes of the left knee. Soft tissue swelling about the MCL likely indicating MCL injury. IMPRESSION: 1. Acute fracture of the lateral proximal tibia with 16 mm of displacement at the tibial plateau articular surface. Vertical propagation into the metaphysis. 2. Acute fracture of the fibular head with 2 mm displacement. 3. Associated lipohemarthrosis and popliteal cyst. 4. Degenerative changes. 5. Soft tissue swelling about the MCL likely indicating MCL injury. Dictated by Barron Steinberg MD @ 12/07/2023 2:03:33 PM Please note that all CT scans at this facility use dose modulation, iterative reconstruction, and/or weight-based dosing when appropriate to reduce radiation dose to as low as reasonably achievable. Dictated by: Barron Steinberg MD @ 12/07/2023 14:03:40 Signed by:?Barron Steinberg MD @12/07/2023 2:03:40 PM (Electronic Signature)
== END 2023-12-07 14:11 | disposition home or self-care (01) ==
PROVIDERS: Emergency Provider Family Medicine; PCP Internal Medicine
DX: S82.142A Displaced bicondylar fracture of left tibia, initial encounter for closed fracture (principal); W54.1XXA Struck by dog, initial encounter
CPT/HCPCS: 73560; 73700; 99283; 99284

== ENCOUNTER 2024-07-16 13:49 | Outpatient (RCR) | payer BC, SELFPAY ==
[2024-07-16 14:06] LABS: Basophils Percent Auto 0.5 % (0.0-3.0); Eosinophils Percent Auto 1.8 % (0.0-7.0); Hematocrit 45.8 % (37.0-53.0); Hemoglobin* 15.3 gm/dL (13.5-17.5); Lymphocytes Percent Auto 26.8 % (20-44); Mean Corpuscular HGB Conc 33 gm/dL (32-36); Mean Corpuscular Hemoglobin 32 pg (26-34); Mean Corpuscular Volume 94 fL (80-100); Neutrophils Percent Auto 61.9 % (42.0-72.0); Platelet Count* 161 K/uL (140-440); Red Blood Count 4.86 m/uL (4.30-5.90)
[2024-07-16 14:07] LABS: Slide Review Reflex No
[2024-07-16 14:30] LABS: Albumin* 4.6 g/dL (3.3-5.0); Chloride* 106 mmol/L (96-114)
[2024-07-16 14:31] LABS: Potassium* 4.4 mmol/L (3.6-5.1); Sodium* 140 mmol/L (135-149)
[2024-07-16 14:33] LABS: Alanine Aminotransferase* 24 U/L (4-50); Alkaline Phosphatase* 65 U/L (40-150); Anion Gap 7 mEq/L (7-15); Aspartate Amino Transferase* 25 U/L (12-35); Bilirubin Total* 0.8 mg/dL (0.1-1.5); Blood Urea Nitrogen* 20 mg/dL (7-30); Carbon Dioxide* 27 mmol/L (20-32); Creatinine* 0.9 mg/dL (0.5-1.5); Estimated Glomerular Filt Rate 94 ml/min; Glucose* 104 mg/dL (60-115); Total Protein* 7.5 g/dL (6.0-8.3)
[2024-07-16 14:34] LABS: Calcium* 9.7 mg/dL (8.4-10.6); Cholesterol* 186 mg/dL (90-199); Glucose* 105 mg/dL (60-115); Triglycerides* 166 mg/dL (40-149)
[2024-07-16 14:35] LABS: HDL Cholesterol* 54 mg/dL (>=40); LDL Cholesterol Calculated 99 mg/dL (<100)
[2024-07-16 15:05] LABS: PSA Screen* 0.62 ng/mL (0.10-4.00)
[2024-07-16 15:41] LABS: Hemoglobin A1C* 5.2 % (0-5.6)
== END 2025-01-12 23:59 | disposition home or self-care (01) ==
LOC: CCIC 13:49
PROVIDERS: Radiology Radiation Oncology; PCP Internal Medicine; Referring Provider Internal Medicine; Visit Provider Clinical Nurse Specialist
DX: C02.9 Malignant neoplasm of tongue, unspecified (principal); C49.9 Malignant neoplasm of connective and soft tissue, unspecified; E03.9 Hypothyroidism, unspecified
CPT/HCPCS: 36415; 80050; 80053; 80061; 82947; 83036; 84443; 85025; G0103

== ENCOUNTER 2024-07-21 08:00 | Outpatient (RCR) | payer BC, SELFPAY | END 2024-11-18 23:59 | disposition home or self-care (01) | PROVIDERS: PCP Internal Medicine; Visit Provider Nurse Practitioner | DX: S82.142D Displaced bicondylar fracture of left tibia, subsequent encounter for closed fracture with routine healing (principal); Z51.89 Encounter for other specified aftercare | CPT/HCPCS: 97110; 97112; 97161 ==

== ENCOUNTER 2025-07-27 10:25 | Outpatient (CLI) | payer BC, SELFPAY | END 2025-07-27 10:26 | disposition home or self-care (01) | PROVIDERS: PCP Internal Medicine; Visit Provider Internal Medicine | DX: Z01.818 Encounter for other preprocedural examination (principal); R73.9 Hyperglycemia, unspecified | CPT/HCPCS: 80053; 80061; 84443; G0103 ==

== ENCOUNTER 2025-08-08 07:00 | Outpatient (CLI) | payer BC, SELFPAY ==
--- NOTE | 2025-08-08 08:21 | P.ANES_ITS ---
Anesthesia Charges Start Date/Time Anesthesia Start Date: 08/08/25 Anesthesia Start Time: 07:58 Stop Date/Time Anesthesia Stop Date: 08/08/25 Anesthesia Stop Time: 08:21 Coding CPT Codes CPT Codes: ANES LWR INTST NDSC NOS - 53541 ([id number]) P3 - PATIENT W/SEVERE SYS DISEASE, QZ - TRAVEL COORDINATOR SVC W/O MANAGER LAW BY
--- NOTE | 2025-08-08 08:21 | W.ANESCHARGE ---
Anesthesia Charges Start Date/Time Anesthesia Start Date: 08/08/25 Anesthesia Start Time: 07:58 Stop Date/Time Anesthesia Stop Date: 08/08/25 Anesthesia Stop Time: 08:21 Coding CPT Codes CPT Codes: ANES LWR INTST NDSC NOS - 44829 ([id number]) P3 - PATIENT W/SEVERE SYS DISEASE, QZ - COLLEGE PHYSICS INSTRUCTOR SVC W/O REGISTERED CLIENT ASSOCIATE BY
== END 2025-08-08 07:01 | disposition home or self-care (01) ==
PROVIDERS: PCP Internal Medicine; Visit Provider Internal Medicine
DX: Z86.0100 Personal history of colon polyps, unspecified (principal); D12.3 Benign neoplasm of transverse colon; K57.30 Diverticulosis of large intestine without perforation or abscess without bleeding
CPT/HCPCS: 00811; 45380; J2704